=== PATIENT | female | born 1945 | race Caucasian/White ===

== ENCOUNTER 2017-06-01 16:18 | Emergency (ER) | payer BC, MEDICARE, OTHER ==
[~2017-06-01] VITALS: Ht 167.6 cm; Wt 88.0 kg
[2017-06-01 16:45] VITALS: BP 168/80
[2017-06-01] MEDS ORDERED: HYDROcodone/APAP 5/325MG 1 TAB TABLET PO ONE (17:00)
[2017-06-01] MEDS ORDERED: DIPHTH,PERTUSS(ACELL),TET TOX 0.5 ML DISP.SYRIN. VAX IM ONE (17:00)
[2017-06-01] MEDS ORDERED: TRAM-48 PO (17:11)
--- NOTE | 2017-06-01 17:11 | PHYS DOC ---
Past Medical History Past Medical History: No Pertinent History Past Surgical History: Other Additional Past Surgical Histo: L WRIST FRACTURE Alcohol Use: None Drug Use: None Adult General Chief Complaint Chief Complaint: TOE PROBLEM HPI HPI Patient is a 71 year old female presents to the emergency department with a history of right great toe nail avulsion that happened today. Patient states that they're really doing things in the house when she got her right great toe caught on the end of a piece with. She states that it pulled the toenail back. She is able to ambulate with a good steady gait. There is minimal bleeding noted at that site. Patient has not taken anything for pain or discomfort. Review of Systems Review of Systems Constitutional: Denies fever or chills [] Eyes: Denies change in visual acuity, redness, or eye pain [] HENT: Denies nasal congestion or sore throat [] Respiratory: Denies cough or shortness of breath [] Cardiovascular: No additional information not addressed in HPI [] GI: Denies abdominal pain, nausea, vomiting, bloody stools or diarrhea [] : Denies dysuria or hematuria [] Musculoskeletal: Denies back pain or joint pain. Complaining right great toe pain Integument: Denies rash or skin lesions [] Neurologic: Denies headache, focal weakness or sensory changes [] Endocrine: Denies polyuria or polydipsia [] Current Medications Current Medications Current Medications Medications (Trade) Dose Ordered Sig/[facility] Start Time Stop Time Status Last Admin Dose Admin Acetaminophen/ Hydrocodone Bitart (Lortab 5/325) 1 tab 1X ONCE 06/01/17 17:00 06/01/17 17:01 DC 06/01/17 17:20 1 TAB Diphtheria/ Tetanus/Acell Pertussis (Boostrix) 0.5 ml ONCE ONCE 06/01/17 17:00 06/01/17 17:01 DC 06/01/17 17:21 0.5 ML Lidocaine/Sodium Bicarbonate (Buffered Lidocaine 1%) 20 ml 1X ONCE 06/01/17 17:30 06/01/17 17:31 DC Allergies Allergies Allergies Coded Allergies Type Severity Reaction Last Updated Verified No Known Drug Allergies 06/01/17 No Physical Exam Physical Exam Constitutional: Well developed, well nourished, no acute distress, non-toxic appearance. [] HENT: Normocephalic, atraumatic, bilateral external ears normal, oropharynx moist, no oral exudates, nose normal. [] Eyes: PERRLA, EOMI, conjunctiva normal, no discharge. [] Neck: Normal range of motion, no tenderness, supple, no stridor. [] Cardiovascular:Heart rate regular rhythm Lungs & Thorax: No respiratory distress noted. Skin: Warm, dry, no erythema, no rash. Patient was noted to have an avulsion of the right great toenail. There is minimal bleeding noted around the site. No bruising or discoloration noted slight swelling noted. Extremities: Right great toe tenderness, no cyanosis, no clubbing, ROM intact, no edema. [] Neurologic: Alert and oriented X 3, normal motor function, normal sensory function, no focal deficits noted. [] Psychologic: Affect normal, judgement normal, mood normal. [] Current Patient Data Vital Signs Vital Signs Date Time Temp Pulse Resp B/P (MAP) Pulse Ox O2 Delivery O2 Flow Rate FiO2 06/01/17 17:20 Room Air 06/01/17 16:45 98.0 65 18 99 98.0 EKG EKG [] Radiology/Procedures Radiology/Procedures [] Course & Med Decision Making Course & Med Decision Making Pertinent Labs and Imaging studies reviewed. (See chart for details) X-ray was negative for bony abnormalities per Dr Clinton. Patient was provided with hydrocodone here in the emergency department. Right foot was soaked in Betadine and water. Now was trimmed back to prevent getting the nail caught. Digital block with 6 ml 1% buffered lidocaine injected into the right great toe for digital block. Dermabond was placed underneath the toenail with pressure applied to the toenail for adhesive tenderness. Patient was provided with discharge instructions and treatment regimens. She was instructed to keep the area clean and dry. Ice packs on 20 minutes off 20 minutes several times a day elevation as much as possible. She was also instructed to use Tylenol or ibuprofen for pain and discomfort. Patient was also recommended follow-up with a dip stand loader. Patient agrees with discharge instructions, treatment regimens and follow-up recommendations. Patient will be discharged home in stable condition. All questions and concerns been answered at patient's bedside. [] Dragon Disclaimer Dragon Disclaimer This electronic medical record was generated, in whole or in part, using a voice recognition dictation system. Departure Departure Impression: Primary Impression: Contusion of right great toe with damage to nail, initial encounter Disposition: 01 HOME, SELF-CARE Condition: STABLE Referrals: NON,STAFF (PCP) Patient Instructions: Nail Avulsion Injury Additional Instructions: Activity as tolerated Ice packs on 20 minuted and off 20 minutes several times a day Elevation as much as possible Tylenol or Ibuprofen for pain and discomfort ultram may be taken for severe pain. This medication will cause drowsiness do not take if you need to be alert and oriented Followup with a dip stand loader in 3-5 days Return to emergency department as needed for signs and symptoms that become worse. Scripts Tramadol Hcl (ULTRAM) 50 Mg Tablet 1 TAB PO Q6HRS, #15 TAB Prov: CECILIO ANTONY APRN 06/01/17 CECILIO ANTONY APRN Jun 01, 2017 17:11
[2017-06-01] MEDS ORDERED: LIDOCAINE 1% / SOD BICARB 8.4% 20 ML VIAL. IJ ONE (17:30)
--- NOTE | 2017-06-02 08:43 | RAD ---
Right great toe 3 views. History: avulsion of the nail 3 views were taken of the right great toe. There is abnormality of the nail. There is soft tissue swelling. There is no fracture or osseous abnormality. Impression: 1. No fracture noted in the great toe.
== END 2017-06-01 17:51 | disposition home or self-care (01) ==
LOC: ER 16:18
DX: S90.111A Contusion of right great toe without damage to nail, initial encounter (principal); W23.0XXA Caught, crushed, jammed, or pinched between moving objects, initial encounter; Y93.89 Activity, other specified; Y99.8 Other external cause status; Y92.89 Other specified places as the place of occurrence of the external cause
CPT/HCPCS: 11760; 73660; 90471; 90715; 99284-25

== ENCOUNTER → 2020-06-17 | Outpatient (CLI) | payer BC, OTHER ==
[~2020-06-17] MED LIST: TRAM-48 PO
--- NOTE | 2020-06-17 10:25 | RAD ---
Examination: Ultrasound abdomen complete HISTORY: History of abdominal pain COMPARISON: None available FINDINGS: The liver length measures 18.6 cm. Moderate increased echogenicity identified in the liver likely hepatic steatosis. The aorta, IVC, pancreas are not well-visualized due to bowel gas. The spleen measures 10.2 cm in length. The right kidney measures 12.2 x 4.7 x 5.3 cm . The left kidney measures 11.4 x 4.2 x 4.9 cm. Cystic structures identified in the right and left kidneys the largest measuring 3.5 cm in the left kidney containing septation. Severe shadowing identified in the gallbladder region likely secondary to gallbladder filled with stones. The gallbladder wall thickness measures 4.4 mm The common bile duct is 5 mm in transverse dimension. IMPRESSION: 1. Cholelithiasis with gallbladder full of gallstones with minimal thickening of gallbladder wall. Consider HIDA scan if there is clinical suspicion for cholecystitis. 2. Cystic structures identified in the bilateral kidneys with the largest measuring 2.5 cm the left kidney containing septations. Recommend follow-up CT urogram for better evaluation. 3. Hepatic steatosis. Electronically signed by: Navin Basurto MD (06/17/2020 10:22 AM) [id number]
== END ==
LOC: US 08:49
PROVIDERS: ATTEND Family Medicine
DX: K80.20 Calculus of gallbladder without cholecystitis without obstruction (principal); N28.1 Cyst of kidney, acquired; K76.0 Fatty (change of) liver, not elsewhere classified
CPT/HCPCS: 76700

== ENCOUNTER → 2020-07-18 | Outpatient (CLI) | payer OTHER ==
[~2020-07-18] MED LIST changes: +CHOL500050 PO; +LOSA-73 PO; +OXYC-325 PO; +[UNRECOGNIZED DRUG - OTHER] PO
== END ==
LOC: LAB 13:06
PROVIDERS: ATTEND Surgery
DX: Z01.812 Encounter for preprocedural laboratory examination (principal); K81.9 Cholecystitis, unspecified; Z20.828 Contact with and (suspected) exposure to other viral communicable diseases
CPT/HCPCS: U0003

== ENCOUNTER 2020-07-21 10:22 | Day surgery (SDC) | payer OTHER ==
[~2020-07-21] VITALS: Ht 167.6 cm; Wt 90.0 kg
[~2020-07-21 10:22] MED LIST changes: +ACETAMINOPHEN 500 MG TABLET PO PRN; +BUPIVACAINE-EPI 0.25%-1:200000 MPF 30 ML VIAL. INJ ONE; +DEXAMETHASONE SOD PHOS 20 MG/5 ML VIAL. ONE; +HYDROmorphone 2 MG/ML VIAL IV PRN; +INDOCYANINE GREEN 2.5 MG in TOTAL VOLUME SYRINGE 1 ML IVP ONE; +IV RINGERS,LACTATED 1000ML 1,000 ML IV SCH; +LIDOCAINE 2% PF 5 ML VIAL. ONE; +MORPHINE SULFATE 2 MG/ML VIAL. IV PRN; +ONDANSETRON PF 4 MG/2 ML VIAL. IV PRN; +ONDANSETRON PF 4 MG/2 ML VIAL. ONE; -OXYC-325 PO; +PROCHLORPERAZINE 10 MG/2 ML VIAL. IV PRN; +PROPOFOL 10 MG/ML (20ML) VIAL. IV ONE; +ROCURONIUM 50 MG/5 ML VIAL. ONE; +fentaNYL PF VIAL 100 MCG/2 ML VIAL IV PRN; +fentaNYL PF VIAL 250 MCG/5 ML VIAL ONE
[2020-07-21] MEDS ORDERED: SURGICEL HEMOSTAT 4X8 EACH. ONE (10:24)
[2020-07-21] MEDS ORDERED: NEOSTIGMINE METHYLSULFATE 5 MG/5 ML SYRINGE. ONE (12:43)
[2020-07-21] MEDS ORDERED: GLYCOPYRROLATE 1 MG/5 ML VIAL. ONE (12:57)
[2020-07-21] MEDS ORDERED: PHENYLEPHRINE in 0.9% NACL PF 1 MG/10 ML SYRINGE. IV ONE (12:58)
[2020-07-21] MEDS ORDERED: ePHEDrine PF IN SALINE 50 MG/10 ML SYRINGE. IV ONE (13:00)
--- NOTE | 2020-07-21 13:57 | PDOC4 ---
Operative Note Operative Note Date: 1118 at 154 Preoperative diagnosis: Symptomatic cholelithiasis Postoperative diagnosis: Same Procedure: Robotic assisted laparoscopic cholecystectomy with intraoperative cholangiogram Specimen: Gallbladder Surgeon: Dilshad Dictation: Patient is a 74-year-old female has has right upper quadrant abdominal pain ultrasound showing gallstones. Procedure of robotic assisted laparoscopic cholecystectomy was explained to the patient detail was benefits were also discussed including bleeding infection injury to intra-abdominal contents possible necessitating further open operations alternatives to this procedure also discussed with the patient who seemed to understand and gave both verbal and written consent to have the procedure performed. Patient was taken to the operating room placed in the supine position general anesthesia was initiated once patient was sleeping intubated her abdomen was prepped and draped in the usual sterile fashion using ChloraPrep. An area just below the umbilicus was injected with quarter percent Marcaine with epinephrine incision was made 11 blade scalpel and a varies needle was placed within the abdomen creating pneumoperitoneum once this was complete 12 mm port was placed and the da Almita camera was placed within the abdomen and inspected the patient was placed in steep reverse Trendelenburg and tilted to the left. A 8 mm da Almita port was placed in the left midabdomen and 8 mm da Almita port was placed in the right midabdomen the da Almita robot was brought and docked all port sites. A 5 mm port was placed in the right upper quadrant and a grasper was used to grasp the dome of the gallbladder Surgeon went to the robotic console using a grasper and hook electrocautery that here tissues to the gallbladder were taken down to the infundibulum which was grasped and retracted laterally the triangle adherent tissues were taken down with blunt dissection exposing the cystic duct and cystic artery both were doubly clipped with hemolock clips and transected. The gallbladder is taken off the liver with hook electrocautery. Once this complete surgeon returned to the operative field using an Endo Catch bag through the 12 mm port the gallbladder was removed from the 12 mm port site the pneumoperitoneum was reduced all ports were removed the robot was undocked from all port sites the fascial defect at the umbilicus closed with [id number] Vicryl suture and the skin was reapproximated all port sites for subcuticular Monocryl Mastisol Steri-Strips and island dressings were applied. Patient was awakened and extubated operating room taken to recovery in stable condition all sponge instrument needle counts listed as correct estimated blood loss 10 mL. MAY SEE MD Jul 21, 2020 13:57
--- NOTE | 2020-07-21 13:59 | DISCH ---
DISCHARGE INSTRUCTIONS Condition on Discharge Condition on Discharge: Stable Activity After Discharge Activity Instructions for Disc: Avoid exertion Other activity instructions: No lifting more than 20 pounds for 2 weeks Diet after Discharge Diet after Discharge: Low Fat Wound Incision Care Other wound/incision instructi: May shower in 24 hours Contacting the after DC Call your doctor for: If your condition worsens Follow-Up Follow up with: Dr. See in 2 weeks MAY SEE MD Jul 21, 2020 13:59
[2020-07-21] MEDS ORDERED: OXYC-325 PO (14:13)
[2020-07-21] MEDS ORDERED: oxyCODONE/APAP 5/325 1 TAB TABLET PO PRN (14:15)
[2020-07-21] MEDS ORDERED: oxyCODONE/APAP 5/325 1 TAB TABLET PO ONE (14:15)
[2020-07-21] MEDS ORDERED: fentaNYL PF VIAL 100 MCG/2 ML VIAL ONE (14:21)
[2020-07-21] MEDS: fentaNYL PF VIAL 100 MCG/2 ML VIAL IV PRN ×2 (14:24→14:39)
[2020-07-21 14:55] VITALS: BP 159/75
== END 2020-07-21 15:30 | disposition home or self-care (01) ==
LOC: SURG 10:22
PROVIDERS: ATTEND Surgery
DX: K80.80 Other cholelithiasis without obstruction (principal); I10 Essential (primary) hypertension; E78.00 Pure hypercholesterolemia, unspecified; E66.9 Obesity, unspecified; Z79.899 Other long term (current) drug therapy; Z98.890 Other specified postprocedural states; Z68.32 Body mass index [BMI] 32.0-32.9, adult
CPT/HCPCS: 47562; J0690; J1100; J2370; J2405; J2704; J2710; J3010; J3490

== ENCOUNTER → 2021-06-27 | Outpatient (CLI) | payer OTHER ==
[~2021-06-27] MED LIST changes: -ACETAMINOPHEN 500 MG TABLET PO PRN; -BUPIVACAINE-EPI 0.25%-1:200000 MPF 30 ML VIAL. INJ ONE; -DEXAMETHASONE SOD PHOS 20 MG/5 ML VIAL. ONE; -HYDROmorphone 2 MG/ML VIAL IV PRN; -INDOCYANINE GREEN 2.5 MG in TOTAL VOLUME SYRINGE 1 ML IVP ONE; -IV RINGERS,LACTATED 1000ML 1,000 ML IV SCH; -LIDOCAINE 2% PF 5 ML VIAL. ONE; -MORPHINE SULFATE 2 MG/ML VIAL. IV PRN; -ONDANSETRON PF 4 MG/2 ML VIAL. IV PRN; -ONDANSETRON PF 4 MG/2 ML VIAL. ONE; +OXYC-325 PO; -PROCHLORPERAZINE 10 MG/2 ML VIAL. IV PRN; -PROPOFOL 10 MG/ML (20ML) VIAL. IV ONE; -ROCURONIUM 50 MG/5 ML VIAL. ONE; -fentaNYL PF VIAL 100 MCG/2 ML VIAL IV PRN; -fentaNYL PF VIAL 250 MCG/5 ML VIAL ONE
--- NOTE | 2021-06-27 17:34 | RAD ---
Bilateral digital screening mammogram to include digital breast tomosynthesis (3-D mammography) 06/27 CLINICAL HISTORY: Screening study. Digital MLO and CC mammograms of both breasts were obtained. Additionally digital breast tomosynthesi s images (3-D mammography) of both breasts in the CC and MLO projections were obtained. This is the patient's baseline mammogram. The breast parenchyma is heterogeneously dense which could obscure a lesion on mammography (breast de nsity C). Vascular calcifications are seen within both breasts. No spiculated mass is seen. No malign ant appearing calcification or area of architectural distortion is noted. Digital breast tomosynthesis images demonstrate no spiculated mass. No malignant appearing calcificat ion is seen. Impression: BI-RADS Category 1: Negative. There is no mammographic evidence of malignancy. Routine y early screening mammography is recommended for follow-up. This examination was reviewed with the aid of computer-aided detection. A mammogram does not have 100% sensitivity and therefore a negative imaging study should not delay fu rther work up of a suspicious abnormality. Patient information is entered into the reminder system with a target due date for the next screening mammogram of 06/27/2022. "Our facility is accredited by the [employer] Mammography Program." Electronically signed by: Samy Anthony MD (06/27/2021 5:32 PM) [id number]
== END ==
LOC: MAMMO 10:31
PROVIDERS: ATTEND Family Medicine
DX: Z12.31 Encounter for screening mammogram for malignant neoplasm of breast (principal)
CPT/HCPCS: 77063; 77067